=== PATIENT | female | born 1965 | race Caucasian/White ===

== ENCOUNTER 2018-09-20 20:47 | Emergency (ER) | payer SELFPAY ==
[~2018-09-20] VITALS: Ht 165.1 cm; Wt 67.1 kg
[2018-09-20] MEDS ORDERED: NACL 0.9% 1,000 ML IV ONE (21:15)
--- NOTE | 2018-09-20 21:20 | NUR ---
Patient to ER bed 7 for evaluation. Side rails up.
[2018-09-20 21:29] VITALS: BP_SYST 137
--- NOTE | 2018-09-20 21:30 | NUR ---
Patient to ER via EMT ambulance for evaluation s/p ETOH use earlier this evening. Patient is awake, alert and oriented in no acute distress, vital signs stable, respirations even and unlabored, skin warm and dry to touch. Patient up to bathroom with slow, steady gait and provided urine sample which was sent to lab. Awaitng evaluation by ER MD, will continue to observe and assess.
--- NOTE | 2018-09-20 21:35 | NUR ---
ER at bedside examining patient.
[2018-09-20 21:37] LABS: BASOPHILS # (AUTO) 0.1 K/uL (0.0-0.2); EOSINOPHILS # (AUTO) 0.1 K/uL (0.0-0.4); EOSINOPHILS % (AUTO) 1.4 % (0.0-4.0); HEMATOCRIT 40.8 % (36-48); HEMOGLOBIN 13.7 g/dL (12.0-16.0); LYMPHOCYTES # (AUTO) 2.3 K/uL (1.0-5.5); MEAN CORPUSCULAR HEMOGLOBIN 31 pg (27-31); MEAN CORPUSCULAR HGB CONC 34 % (32-36); MEAN CORPUSCULAR VOLUME 93 fL (79.0-98.0); MONOCYTES # (AUTO) 0.4 K/uL (0.0-1.0); MONOCYTES % (AUTO) 6.5 % (1.7-9.3); NEUTROPHILS # (AUTO) 2.8 K/uL (1.8-7.7); NEUTROPHILS % (AUTO) 50.1 % (40.0-70.0); PLATELET COUNT (AUTO) 321 K/uL (130-430); RED BLOOD CELL COUNT(AUTO) 4.38 MIL/uL (4.2-6.2); RED CELL DISTRIBUTION WIDTH 11.9 % (9.0-15.0); WHITE BLOOD COUNT (AUTO) 5.7 K/uL (4.8-10.8)
[2018-09-20 22:01] LABS: CREATININE 0.86 mg/dL (0.55-1.30); POTASSIUM 3.5 mmol/L (3.5-5.1)
[2018-09-20 22:07] LABS: ALBUMIN 3.7 g/dL (3.4-4.8); TOTAL BILIRUBIN 0.2 mg/dL (0.0-1.0)
--- NOTE | 2018-09-20 22:15 | NUR ---
Dr Alberto at bedside speaking with patient/visitors regarding results and plan of care, questions answered by Dr Alberto. IV fluids infusing without difficulty, no redness or swelling noted at site.
--- NOTE | 2018-09-20 22:36 | NUR ---
Note undone in EDM - 09/21/18 at 0203 by [email or web address] Patient given written and verbal discharge instructions and verbalizes understanding. ER discussed with patient the results and treatment provided. Patient in stable condition. ID arm band removed. IV catheter removed intact and dressing applied, no active bleeding. No Rx given. Patient educated on pain management and to follow up with PMD. Pain Scale 0. Opportunity for questions provided and answered. Medication side effect fact sheet provided.
--- NOTE | 2018-09-20 22:50 | NUR ---
Patient resting quietly in no acute distress, vital signs stable, respirations even and unlabored, skin warm and dry to touch. IV fluids infusing without difficulty, no redness or swelling noted at site.
--- NOTE | 2018-09-20 23:00 | NUR ---
Patient waiting for friends to return to take her home. Patient resting quietly in no acute distress.
[2018-09-20 23:36] VITALS: BP_SYST 122
--- NOTE | 2018-09-20 23:36 | NUR ---
Patient given written and verbal discharge instructions and verbalizes understanding. ER MD discussed with patient the results and treatment provided. Patient in stable condition. ID arm band removed. IV catheter removed intact and dressing applied, no active bleeding. No Rx given. Patient educated on pain management and to follow up with PMD. Pain Scale 0. Opportunity for questions provided and answered. Medication side effect fact sheet provided.
== END 2018-09-20 23:36 | disposition home or self-care (01) ==
LOC: SED 20:47
DX: F10.129 Alcohol abuse with intoxication, unspecified (principal); Y90.4 Blood alcohol level of 80-99 mg/100 ml
CPT/HCPCS: 36415; 80053; 81025; 85025; 99284; G0482; J7030